=== PATIENT | female | born 1965 | race Asian ===

== ENCOUNTER 2024-04-10 10:25 | Emergency (ER) | payer MEDICAID ==
[~2024-04-10] VITALS: Ht 154.9 cm; Wt 55.0 kg
[~2024-04-10 10:25] MED LIST: ACET-2708 MT; ANAS1TAB49 PO; CARB15DR EACHEYE; CEPH500C2 MT; DIPH-1091 PO; GABA-529 MT; HYDR-4001 PO; HYDR-519; HYDR25TA PO; LISI20TA31; LISI20TA31 PO; LORA10TA7 PO; MULT-1146 MT; OXYC30TA2; POTA-204 MT
[2024-04-10 10:29] VITALS: BP 85/51; TEMP 98.5; O2SAT 96
[2024-04-10 10:31] VITALS: PULSE 103; RESP 18; O2SAT 98
[2024-04-10] MEDS ORDERED: IBUP-2029 MT (12:15)
== END 2024-04-10 13:21 | disposition home or self-care (01) ==
LOC: ER 10:35
DX: S93.402A Sprain of unspecified ligament of left ankle, initial encounter (principal); I10 Essential (primary) hypertension; Z85.3 Personal history of malignant neoplasm of breast; Z79.899 Other long term (current) drug therapy; Z88.5 Allergy status to narcotic agent; W18.39XA Other fall on same level, initial encounter; Y93.89 Activity, other specified; Y92.89 Other specified places as the place of occurrence of the external cause; Y99.8 Other external cause status
CPT/HCPCS: 73610; 99283